=== PATIENT | female | born 1980 | race African-American/Black ===

== ENCOUNTER 2019-04-30 19:00 | Emergency (ER) | payer MEDICAID ==
[~2019-04-30] VITALS: Ht 162.6 cm; Wt 63.5 kg
[2019-04-30 19:05] VITALS: BP_SYST 142
--- NOTE | 2019-04-30 19:14 | NUR ---
Patient to ER bed 8 to gown for evaluation. Side rails up.
--- NOTE | 2019-04-30 19:20 | NUR ---
ER KATELYNN Addison at bedside examining patient.
[2019-04-30] MEDS ORDERED: PHEN-890 PO (19:36)
[2019-04-30] MEDS ORDERED: DICL75TA5 PO (19:36)
[2019-04-30] MEDS ORDERED: NITR-85 PO (19:36)
[2019-04-30] MEDS ORDERED: ACET-2634 PO (19:36)
--- NOTE | 2019-04-30 19:53 | NUR ---
Pilar Addison HOSPITAL WARD CLERK at bedside speaking to pt about results.
[2019-04-30] MEDS ORDERED: cefTRIAXone 1 GM in LIDOCAINE 1%, 20 ML MDV 2.1 ML IM ONE (20:00)
[2019-04-30] MEDS ORDERED: KETOROLAC TROMETHAMINE 60 MG/2 ML VIAL IM ONE (20:00)
[2019-04-30 20:21] LABS: BILIRUBIN,URINE NEGATIVE (NEGATIVE); BLOOD, URINE 2+ (NEGATIVE); CLARITY/URINE CLEAR (CLEAR); COLOR,URINE YELLOW (YELLOW); GLUCOSE,URINE NEGATIVE (NEGATIVE); KETONES,URINE NEGATIVE (NEGATIVE); LEUKOCYTE ESTERASE ,URINE TRACE (NEGATIVE); NITRITE, URINE NEGATIVE (NEGATIVE); PROTEIN URINE NEGATIVE (NEGATIVE)
[2019-04-30 20:28] VITALS: BP_SYST 142
--- NOTE | 2019-04-30 20:28 | NUR ---
Patient given written and verbal discharge instructions and verbalizes understanding. ER ROLLER ENGRAVER Pilar Addison discussed with patient the results and treatment provided. Patient in stable condition. ID arm band removed. Rx of motrin, cipro and zofran given. Patient educated on pain management and to follow up with PMD. Pain Scale 2/10, tolerable for pt. Will cont. to monitor. Opportunity for questions provided and answered. Medication side effect fact sheet provided.
[2019-04-30 20:35] LABS: BACTERIA,URINE FEW /HPF (None Seen)
[2019-04-30 20:36] LABS: MUCUS,URINE None Seen /LPF (None Seen)
[2019-05-03 02:09] LABS: CHLAMYDIA TRACHOMATIS NAA Negative (Negative); NEISSERIA GONORRHOEAE NAA Negative (Negative)
== END 2019-04-30 20:28 | disposition home or self-care (01) ==
LOC: SED 19:00
DX: N39.0 Urinary tract infection, site not specified (principal); R03.0 Elevated blood-pressure reading, without diagnosis of hypertension; Z90.49 Acquired absence of other specified parts of digestive tract; Z79.899 Other long term (current) drug therapy
CPT/HCPCS: 81000; 81025; 87086; 87491; 87591; 96372; 99283; J0696; J1885; J2001

== ENCOUNTER 2019-05-05 09:48 | Emergency (ER) | payer MEDICAID ==
[~2019-05-05] VITALS: Ht 162.6 cm; Wt 63.5 kg
[~2019-05-05 09:48] MED LIST: ACET-2634 PO; DICL75TA5 PO; NITR-85 PO; PHEN-890 PO
[2019-05-05 10:01] VITALS: BP_SYST 138
--- NOTE | 2019-05-05 10:20 | NUR ---
Patient to ER bed 7 to gown for evaluation. Side rails up. Report given to Genet MATTHEW.
--- NOTE | 2019-05-05 10:25 | NUR ---
Patient AAOx4 brought in by friend c/og eneralized weakness, dizziness, and feeling tired for 2 weeks. Patient reports taking Ibuprofen for headaches. Patient denies any PMH or allergies. No signs or symptoms of acute distress noted. Skin warm/pink/dry and respirations even and unlabored.
--- NOTE | 2019-05-05 11:23 | NUR ---
ER Dr. Rogers at bedside examining patient.
[2019-05-05 11:39] LABS: BILIRUBIN,URINE NEGATIVE (NEGATIVE); BLOOD, URINE 1+ (NEGATIVE); CLARITY/URINE CLEAR (CLEAR); COLOR,URINE YELLOW (YELLOW); GLUCOSE,URINE NEGATIVE (NEGATIVE); KETONES,URINE NEGATIVE (NEGATIVE); LEUKOCYTE ESTERASE ,URINE 1+ (NEGATIVE); NITRITE, URINE NEGATIVE (NEGATIVE); PROTEIN URINE NEGATIVE (NEGATIVE); UROBILINOGEN,URINE 0.2 (0.2-1.0)
[2019-05-05 11:43] LABS: BACTERIA,URINE FEW /HPF (None Seen)
[2019-05-05 11:46] LABS: BASOPHILS % (AUTO) 0.4 % (0.0-2.0); EOSINOPHILS % (AUTO) 0.4 % (0.0-4.0); HEMOGLOBIN 10.7 g/dL (12.0-16.0); LYMPHOCYTES # (AUTO) 2.2 K/uL (1.0-5.5); LYMPHOCYTES % (AUTO) 37.8 % (20.5-51.5); MEAN CORPUSCULAR HEMOGLOBIN 32 pg (27-31); MEAN CORPUSCULAR HGB CONC 34 % (32-36); MEAN CORPUSCULAR VOLUME 95 fL (79.0-98.0); MONOCYTES # (AUTO) 0.5 K/uL (0.0-1.0); MONOCYTES % (AUTO) 8.9 % (1.7-9.3); NEUTROPHILS # (AUTO) 3.1 K/uL (1.8-7.7); NEUTROPHILS % (AUTO) 52.5 % (40.0-70.0); PLATELET COUNT (AUTO) 192 K/uL (130-430); RED BLOOD CELL COUNT(AUTO) 3.38 MIL/uL (4.2-6.2); RED CELL DISTRIBUTION WIDTH 14.2 % (9.0-15.0); WHITE BLOOD COUNT (AUTO) 5.8 K/uL (4.8-10.8)
[2019-05-05 11:58] LABS: CALCIUM 9.1 mg/dL (8.4-11.0); CREATININE 0.74 mg/dL (0.55-1.30); POTASSIUM 3.3 mmol/L (3.5-5.1)
[2019-05-05 12:05] LABS: TOTAL BILIRUBIN 0.8 mg/dL (0.0-1.0)
[2019-05-05] MEDS ORDERED: cefTRIAXone 1 GM IVPB PREMIX 50 ML IV ONE (12:30)
--- NOTE | 2019-05-05 12:34 | NUR ---
Per MD, No blood cultures necessary prior to IV abx.
--- NOTE | 2019-05-05 12:42 | NUR ---
PT taken to CT via [facility] in stable condition
[2019-05-05] MEDS ORDERED: KETOROLAC TROMETHAMINE 30 MG VIAL IVP ONE (13:45)
[2019-05-05] MEDS ORDERED: ONDANSETRON HCL 4 MG/2 ML VIAL IVP ONE (13:45)
--- NOTE | 2019-05-05 13:55 | NUR ---
Medication administered. Pt tolerated well. no adverse reactions noted. Will continue to [facility].
--- NOTE | 2019-05-05 14:24 | NUR ---
Patient given written and verbal discharge instructions and verbalizes understanding. ER MD Rogers discussed with patient the results and treatment provided. Patient in stable condition. ID arm band removed. IV catheter removed intact and dressing applied, no active bleeding. Rx of Zofran, motrin, keflex given. Patient educated on pain management and to follow up with PMD. Pain Scale 0. Opportunity for questions provided and answered. Medication side effect fact sheet provided.
[2019-05-05 14:28] VITALS: BP_SYST 131
== END 2019-05-05 14:28 | disposition home or self-care (01) ==
LOC: SED 09:48
DX: N39.0 Urinary tract infection, site not specified (principal); R03.0 Elevated blood-pressure reading, without diagnosis of hypertension; Z79.899 Other long term (current) drug therapy
CPT/HCPCS: 36415; 70450; 80053; 81000; 82550; 85025; 87086; 96365; 96375; 99284; J0696; J1885; J2405

== ENCOUNTER 2019-05-26 17:45 | Emergency (ER) | payer MEDICAID ==
[~2019-05-26] VITALS: Ht 162.6 cm; Wt 65.8 kg
[2019-05-26 17:49] VITALS: BP_SYST 132
[2019-05-26 18:38] LABS: BASOPHILS % (AUTO) 0.7 % (0.0-2.0); EOSINOPHILS # (AUTO) 0.1 K/uL (0.0-0.4); EOSINOPHILS % (AUTO) 1.3 % (0.0-4.0); HEMATOCRIT 33.4 % (36-48); HEMOGLOBIN 11.2 g/dL (12.0-16.0); LYMPHOCYTES # (AUTO) 2.1 K/uL (1.0-5.5); LYMPHOCYTES % (AUTO) 35.3 % (20.5-51.5); MEAN CORPUSCULAR HEMOGLOBIN 31 pg (27-31); MEAN CORPUSCULAR HGB CONC 33 % (32-36); MEAN CORPUSCULAR VOLUME 94 fL (79.0-98.0); MONOCYTES # (AUTO) 0.5 K/uL (0.0-1.0); NEUTROPHILS # (AUTO) 3.2 K/uL (1.8-7.7); NEUTROPHILS % (AUTO) 54.7 % (40.0-70.0); PLATELET COUNT (AUTO) 141 K/uL (130-430); RED BLOOD CELL COUNT(AUTO) 3.56 MIL/uL (4.2-6.2); RED CELL DISTRIBUTION WIDTH 13.4 % (9.0-15.0); WHITE BLOOD COUNT (AUTO) 5.9 K/uL (4.8-10.8)
[2019-05-26 18:47] LABS: BILIRUBIN,URINE NEGATIVE (NEGATIVE); BLOOD, URINE 2+ (NEGATIVE); COLOR,URINE YELLOW (YELLOW); GLUCOSE,URINE NEGATIVE (NEGATIVE); KETONES,URINE NEGATIVE (NEGATIVE); LEUKOCYTE ESTERASE ,URINE 3+ (NEGATIVE); NITRITE, URINE POSITIVE (NEGATIVE); PROTEIN URINE NEGATIVE (NEGATIVE); UROBILINOGEN,URINE 0.2 (0.2-1.0)
[2019-05-26 18:48] LABS: CLARITY/URINE HAZY (CLEAR)
[2019-05-26 18:51] LABS: CALCIUM 9.5 mg/dL (8.4-11.0); CREATININE 0.83 mg/dL (0.55-1.30); POTASSIUM 3.3 mmol/L (3.5-5.1)
[2019-05-26 18:57] LABS: ALBUMIN 3.3 g/dL (3.4-4.8); TOTAL BILIRUBIN 0.6 mg/dL (0.0-1.0)
[2019-05-26 18:58] LABS: BACTERIA,URINE MANY /HPF (None Seen); WBC,URINE 50-80 /HPF (0-3)
[2019-05-26] MEDS ORDERED: IBUPROFEN 600 MG TABLET PO ONE (19:15)
[2019-05-26] MEDS ORDERED: FLUCONAZOLE 100 MG TABLET (DIFLUCAN) PO ONE (21:00)
[2019-05-26 21:15] VITALS: BP_SYST 125
== END 2019-05-26 21:15 | disposition home or self-care (01) ==
LOC: SED 17:45
DX: N76.0 Acute vaginitis (principal); B96.89 Other specified bacterial agents as the cause of diseases classified elsewhere; N39.0 Urinary tract infection, site not specified; Z79.899 Other long term (current) drug therapy
CPT/HCPCS: 36415; 80053; 81000-TC; 81025; 85025; 87086; 87186-TC; 87210-TC; 99283